=== PATIENT | male | born 1995 | race Caucasian/White ===

== ENCOUNTER 2019-02-23 20:07 | Emergency (ER) | payer BC ==
[~2019-02-23] VITALS: Ht 175.3 cm; Wt 81.8 kg
[2019-02-23 20:14] VITALS: BP 127/73; TEMP 97.2
[2019-02-23 23:03] VITALS: PULSE 60
== END 2019-02-23 23:03 | disposition home or self-care (01) ==
LOC: COL.ER 20:07
DX: S61.211A Laceration without foreign body of left index finger without damage to nail, initial encounter (principal); W26.0XXA Contact with knife, initial encounter; Y92.009 Unspecified place in unspecified non-institutional (private) residence as the place of occurrence of the external cause

== ENCOUNTER 2019-03-05 19:49 | Emergency (ER) | payer BC ==
[2019-03-05 20:02] VITALS: BP 119/75; PULSE 63; TEMP 97.9
== END 2019-03-05 20:08 | disposition home or self-care (01) ==
LOC: COL.ER 19:49
DX: S61.211D Laceration without foreign body of left index finger without damage to nail, subsequent encounter (principal)